=== PATIENT | female | born 1990 | race African-American/Black ===

== ENCOUNTER 2020-04-09 11:32 | Emergency (ER) | payer OTHER ==
[~2020-04-09] VITALS: Ht 172.7 cm; Wt 72.6 kg
[~2020-04-09 11:32] MED LIST: NOHOMEMEDICATIONS PO
[2020-04-09] MEDS ORDERED: SUDAFED 12 HOU120 MG PO (12:21)
[2020-04-09 12:41] VITALS: BP 112/67
== END 2020-04-09 12:42 | disposition home or self-care (01) ==
LOC: ER 11:32
DX: J30.89 Other allergic rhinitis (principal); Z79.899 Other long term (current) drug therapy; Z87.891 Personal history of nicotine dependence; Z88.0 Allergy status to penicillin

== ENCOUNTER 2020-09-11 08:19 | Emergency (ER) | payer OTHER ==
[~2020-09-11] VITALS: Ht 175.3 cm; Wt 67.1 kg
[~2020-09-11 08:19] MED LIST changes: +SUDAFED 12 HOU120 MG PO
[2020-09-11 09:31] LABS: ABSOLUTE NEUTROPHILS 3.3 thou/uL (1.4-8.2); BASOPHILS 0.7 % (0.0-2.0); EOSINOPHILS 1.2 % (0.0-3.0); HEMATOCRIT 36.3 % (37.0-47.0); HEMOGLOBIN 12.3 gm/dL (12.0-15.0); LYMPHOCYTES 38.4 % (24.0-44.0); MCH 31.3 pg (26.0-34.0); MCV 92.3 fL (80.0-100.0); MONOCYTES 10.2 % (1.0-8.0); PLATELET COUNT 228 thou/uL (150-400); POLYS 49.5 % (36.0-66.0); RBC 3.94 mil/uL (4.20-5.00); RDW 12.9 % (10.5-14.5); WBC 6.6 thou/uL (4.0-11.0)
[2020-09-11 09:39] LABS: CALCIUM 8.3 mg/dL (8.5-10.1); CREATININE 0.7 mg/dL (0.6-1.0)
[2020-09-11] MEDS ORDERED: MECLIZINE HCL25 MG PO (10:59)
[2020-09-11] MEDS ORDERED: MOBIC15 MG PO (10:59)
[2020-09-11 11:46] VITALS: BP 110/75
== END 2020-09-11 11:47 | disposition home or self-care (01) ==
LOC: ER 08:19
PROVIDERS: Emergency Medicine
DX: R51.9 Headache, unspecified (principal); R11.0 Nausea; Z87.891 Personal history of nicotine dependence; Z79.899 Other long term (current) drug therapy; Z88.0 Allergy status to penicillin

== ENCOUNTER 2021-10-24 06:41 | Emergency (ER) | payer OTHER ==
[~2021-10-24] VITALS: Ht 175.3 cm; Wt 68.0 kg
[~2021-10-24 06:41] MED LIST changes: +MECLIZINE HCL25 MG PO; +MOBIC15 MG PO
[2021-10-24 06:58] VITALS: BP 137/68
== END 2021-10-24 07:19 | disposition home or self-care (01) ==
LOC: ER 06:41
DX: L50.0 Allergic urticaria (principal); T38.0X5A Adverse effect of glucocorticoids and synthetic analogues, initial encounter; Z79.899 Other long term (current) drug therapy; Z88.0 Allergy status to penicillin; Z88.2 Allergy status to sulfonamides; Z88.8 Allergy status to other drugs, medicaments and biological substances; Z87.891 Personal history of nicotine dependence; Y92.89 Other specified places as the place of occurrence of the external cause